=== PATIENT | male | born 1950 | race Caucasian/White ===

== ENCOUNTER 2019-03-08 17:41 | Emergency (ER) | payer MEDICARE ==
[~2019-03-08] VITALS: Ht 182.9 cm; Wt 65.5 kg
[2019-03-08] MEDS ORDERED: LIDOcaine 1% W/epiNEPHrine 1:200,000 10ml vial IJ ONE (18:05)
[2019-03-08] MEDS ORDERED: normal saline 1000ML IV soln IVB ONE (18:05)
[2019-03-08] MEDS ORDERED: aspirin 81mg tab.chew PO ONE (18:05)
--- NOTE | 2019-03-08 18:05 | NUR ---
PT BROUGHT TO ROOM 4. PT BEING SEEN BY MD JOHNSON AT BEDSIDE, IV BEING ESTABLISHED AND LABS BEING DRAWN. PTS VS STABLE AND PTS LACERATION/PUNCTURE TO LEFT LOWER CHEEK LATERAL TO MOUTH OPEN TO AIR AND CURRENTLY NOT BLEEDING.
--- NOTE | 2019-03-08 18:10 | NUR ---
PT WITH LEFT UPPER ANTERIOR THIGH WITH HEMATOMA. THIGHT MEASURED AND MARKED. THIGH MEAURES 20.5 INCHES.
[2019-03-08 18:13] LABS: BASOPHILS # (AUTO) 0.1 X10'3 (0-0.2); BASOPHILS % (AUTO) 0.5 % (0-1); EOSINOPHILS % (AUTO) 0.1 % (0-6); HEMATOCRIT 41.8 % (42.0-52.0); HEMOGLOBIN 14.2 g/dl (14.0-17.9); LYMPHOCYTES # (AUTO) 1.7 X10'3 (1.1-4.8); LYMPHOCYTES % (AUTO) 9.4 % (21-51); MEAN CORPUSCULAR HEMOGLOBIN 30.1 PG (27.0-31.0); MEAN CORPUSCULAR HGB CONC 33.9 g/dL (33.0-36.5); MEAN CORPUSCULAR VOLUME 88.7 FL (78-98); MEAN PLATELET VOLUME 8.4 FL (7.4-10.4); MONOCYTES # (AUTO) 1.8 X10'3 (0-0.9); MONOCYTES % (AUTO) 9.9 % (2-12); NEUTROPHILS # (AUTO) 14.5 X10'3 (1.8-7.7); NEUTROPHILS % (AUTO) 80.1 % (42-75); PLATELET COUNT 279 X10'3 (140-440); RED BLOOD COUNT 4.72 X10'6 (4.70-6.10); RED CELL DISTRIBUTION WIDTH 13.4 % (11.5-14.5); WHITE BLOOD COUNT 18.1 X10'3 (4.5-11.0)
[2019-03-08 18:21] LABS: PARTIAL THROMBOPLASTIN TIME 24 SECONDS (22-32)
[2019-03-08 18:27] LABS: ALANINE AMINOTRANSFERASE 25 U/L (12-78); ALBUMIN 3.9 G/DL (3.4-5.0); ALBUMIN/GLOBULIN RATIO 1.3 (1.1-1.5); ALKALINE PHOSPHATASE 58 IU/L (46-116); ANION GAP 7 (8-16); ASPARTATE AMINO TRANSFERASE 28 U/L (10-37); BILIRUBIN,TOTAL 0.5 MG/DL (0.1-1.0); BLOOD UREA NITROGEN 21 MG/DL (7-18); BUN/CREATININE RATIO 14.1 (5.4-32.0); CHLORIDE 108 MMOL/L (99-107); CREATININE 1.49 MG/DL (0.60-1.10); GLUCOSE 160 MG/DL (70-104); POTASSIUM 4.2 MMOL/L (3.5-5.1); SODIUM 141 MMOL/L (135-145); TOTAL CARBON DIOXIDE 26.1 MMOL/L (24-32); TOTAL PROTEIN 6.9 G/DL (6.4-8.2); eGFR 47 ML/MIN
[2019-03-08 18:33] LABS: CREATINE KINASE 735 U/L (39-308)
[2019-03-08] MEDS ORDERED: TETanus/Pertussis (Acell)/Diphther VAC/PF (Tdap-Adult) 0.5ml syringe IMVAC ONE (19:55)
[2019-03-08 20:39] VITALS: BP 129/94
== END 2019-03-08 20:41 | disposition home or self-care (01) ==
LOC: ER 17:43
DX: S01.412A Laceration without foreign body of left cheek and temporomandibular area, initial encounter (principal); S70.12XA Contusion of left thigh, initial encounter; R55 Syncope and collapse; W22.8XXA Striking against or struck by other objects, initial encounter; Y93.89 Activity, other specified; Y92.89 Other specified places as the place of occurrence of the external cause; Y99.8 Other external cause status
CPT/HCPCS: 12011; 36415; 71045; 80053; 82550; 82948; 83735; 83880; 84484; 85025; 85610; 85730; 90471; 90715; 93005; 96360; 96361; 99284; J7030